=== PATIENT | male | born 1995 | race Caucasian/White ===

== ENCOUNTER → 2020-01-21 | Emergency (ER) | payer SELFPAY ==
[~2020-01-21] VITALS: Ht 175.3 cm; Wt 81.7 kg
[~2020-01-21] MED LIST: DEXTROSE (50%) 50ML SYRG IV ONE; EPINEPHrine HCL 1 MG/10 ML SYRG IV ONE; NALOXONE HCL 1MG/ML 2ML SYRINGE IV ONE; SODIUM BICARBONATE 8.4% INJ 50ML SYRINGE IV ONE
[2020-01-21 20:34] VITALS: BP 0/0
== END | disposition expired ==
LOC: EDBD 20:33 → ER 20:33
DX: I46.9 Cardiac arrest, cause unspecified (principal)
CPT/HCPCS: 31500; 92950; 99285; J0171; J2310; J7042